=== PATIENT | female | born 1985 | race Caucasian/White ===

== ENCOUNTER 2017-12-29 10:27 | Day surgery (SDC) | payer BC ==
[~2017-12-29] VITALS: Ht 167.6 cm; Wt 95.9 kg
--- NOTE | ~2017-12-29 | OP ---
PATIENT NAME: BACILIO VERAS MEDICAL RECORD: [id number] LOCATION:[facility] ADMISSION DATE: SURGEON: YUMI BYRD DO DATE OF OPERATION: 12/29/2017 PROCEDURE: EGD with biopsies. INDICATIONS FOR PROCEDURE: Heartburn as well as nausea and vomiting. SCOPE: Olympus video gastroscope. MEDICATIONS: Propofol 300 mg IV per anesthesia. ESTIMATED BLOOD LOSS: Minimal. COMPLICATIONS: None. FINDINGS: Informed consent was given. The patient was made comfortable with the above medication. After reaching an adequate level of sedation by slow IV push, the patient was placed on her left side. The endoscope was advanced under direct visualization through the mouth to the second portion of the duodenum. The upper, middle, and lower thirds of the esophagus appeared normal. Random biopsies were taken in the middle esophagus to rule out eosinophilic esophagitis. At the GE junction, there was some evidence of mild, LA class A, reflux-induced esophagitis. The endoscope was advanced beyond the GE junction into the stomach and retroflexed to view the cardia, where a moderate-sized sliding-type hiatal hernia was present. The fundus appeared normal. The body of the stomach appeared normal as well. In the antrum and prepyloric region, there was some erythema and granularity as well as a few erosions consistent with gastritis. Random biopsies were taken with cold forceps to submit for histology and to rule out H. pylori. The endoscope was advanced beyond the pylorus into the duodenum. In the duodenal bulb, there was some mild erythema and granularity consistent with duodenitis. This is likely reactive from gastric acid. The second portion of the duodenum appeared normal. The endoscope was withdrawn from the patient. The patient tolerated the procedure well. There were no complications. IMPRESSION: 1. LA class A reflux-induced esophagitis. 2. Moderate-sized sliding type hiatal hernia. 3. Gastritis. 4. Duodenitis. PLAN AND RECOMMENDATIONS: 1. Discharge home when recovery parameters are met. 2. Follow up biopsy specimen results. 3. Protonix 40 mg daily times 8 weeks. If Protonix is not approved, she will be placed on another equivalent PPI. 4. After 8 weeks, consideration can be given to switching back to H2 wendie such as Zantac or Pepcid. We are reducing the dose of the PPI to 20 mg daily to control symptoms. 5. If the patient's nausea is not control, once the heartburn is corrected with medications, then I would consider a gastric emptying scan to rule out gastroparesis. 6. Follow up in GI clinic in 8 weeks. OPERATIVE REPORT [id number] BACILIO VERAS TRANSINT:[id number] Voice Confirmation ID: [id number] DOCUMENT ID: [id number] YUMI BYRD DO at 0842 CC: [id number] DICTATION DATE: 12/29/17 1348 [employer] INSTALLER: 12/29/17 1504 [facility] 12/29/17 [address] [place] [address]
[~2017-12-29 10:27] MED LIST: MOTRIN800 MG PO; PERCOCET 10/3251 TA1 PO; PRENATABS RX TA1 TAB PO; PROCARDIA XL60 MG PO; TRANDATE100 MG PO; TUMS500 MG PO; ZANTAC150 MG PO
[2017-12-29 11:19] LABS: HEMATOCRIT 42.6 % (36.0-48.0); HEMOGLOBIN 14.6 g/dL (12-16); MCH 29.4 pg (26.0-34.0); MCHC 34.3 g/dL (31.0-37.0); MCV 85.9 fL (80.0-100.0); RBC 4.96 10x6/uL (4.00-5.40); RDW 12.6 % (11.5-14.5); WBC 9.2 10x3/uL (4.8-10.8)
[2017-12-29 11:28] LABS: CALC OSMOLALITY 275 mosm/kg (275-300); CALCIUM 9.4 mg/dL (8.5-10.1); CARBON DIOXIDE 26.3 mmol/L (21.0-32.0); CHLORIDE - SERUM 101 mmol/L (98-107); CREATININE - SERUM 0.7 mg/dL (0.6-1.3); GLUCOSE 96 mg/dL (74-106); POTASSIUM - SERUM 3.9 mmol/L (3.5-5.1); SODIUM 138 mmol/L (136-145); UREA NITROGEN 12 mg/dL (7-18); eGFR NON AFRICAN AMERICAN > 90 mL/min (90-120)
[2017-12-29] MEDS ORDERED: ALDACTONE25 MG PO (12:00)
[2017-12-29] MEDS ORDERED: BYSTOLIC5 MG PO (12:00)
[2017-12-29] MEDS ORDERED: MIRENA20 MCG/24 VG (12:01)
[2017-12-29 12:02] VITALS: BP 133/85; Ht 167.6 cm; Wt 95.9 kg
[2017-12-29] MEDS ORDERED: PROZAC20 MG PO (12:02)
[2017-12-29 12:10] LABS: HCG URINE NEGATIVE (NEGATIVE)
== END 2017-12-29 15:10 | disposition home or self-care (01) ==
LOC: D.OPS 10:27
PROVIDERS: Anesthesiology; Internal Medicine Gastroenterology
DX: K21.0 Gastro-esophageal reflux disease with esophagitis (principal); K44.9 Diaphragmatic hernia without obstruction or gangrene; K29.70 Gastritis, unspecified, without bleeding; K29.80 Duodenitis without bleeding; I10 Essential (primary) hypertension; K21.9 Gastro-esophageal reflux disease without esophagitis; E66.9 Obesity, unspecified; Z68.34 Body mass index [BMI] 34.0-34.9, adult; Z01.812 Encounter for preprocedural laboratory examination